=== PATIENT | male | born 1955 | race American Indian/Alaskan Native ===

== ENCOUNTER 2018-12-07 15:59 | Emergency (ER) | payer OTHER ==
[2018-12-07 16:55] LABS: ANION GAP 10.9; CHLORIDE,CL 103 mmol/L (101-111); SODIUM,NA 139 mmol/L (135-145)
[2018-12-07] MEDS ORDERED: Clindamycin HCl 150 MG Cap PO ONE (16:58)
[2018-12-07] MEDS ORDERED: Bacitracin Oint 1 GM U/D Packet TOP ONE (16:58)
--- NOTE | 2018-12-07 17:08 | EDM.PDOC ---
Scribed by Preethi Schafer 12/07/18 0305 for Emiliano Castellon MD ED HPI GENERAL MEDICAL PROBLEM - General Chief Complaint: Lower Extremity Injury/Pain Stated Complaint: LEFT FOOT/LEG PAIN BITE Time Seen by Provider: 12/07/18 16:15 Source of Information: Reports: Patient, RN, RN Notes Reviewed History Limitations: Reports: No Limitations - History of Present Illness INITIAL COMMENTS - FREE TEXT/NARRATIVE: Patient presents to ER with complaint of pain on left lower leg 10/05. States "I was bitten while I was waiting on the bus in [place], I was sleeping outside" Leg appearance is very reddened, with brown discoloration in middle. Onset: Gradual Duration: Getting Worse Location: Reports: Lower Extremity, Left Quality: Reports: Ache Severity: Mild Improves with: Reports: None Worsens with: Reports: None Associated Symptoms: Reports: No Other Symptoms Left Lower Leg Pain Score (Numeric/FACES): 7 - Related Data Allergies Allergy/AdvReac Type Severity Reaction Status Date / Time No Known Allergies Allergy Verified 12/07/18 16:05 Home Meds: Home Meds Cholecalciferol (Vitamin D3) [Vitamin D3] 1,000 units PO BID 12/07/18 [History] Lisinopril 20 mg DAILY 12/07/18 [History] Pravastatin [Pravachol] 20 mg PO BEDTIME 12/07/18 [History] metFORMIN HCl [Metformin HCl] 500 mg PO BID 12/07/18 [History] Past Medical History Endocrine/Metabolic History: Reports: Diabetes, Type II Social & Family History - Family History Family Medical History: Noncontributory - Living Situation & Occupation Living situation: Reports: with Significant Other Occupation: Disabled Review of Systems - Review of Systems Review Of Systems: ROS reveals no pertinent complaints other than HPI. ED EXAM, GENERAL - Physical Exam Exam: See Below Exam Limited By: No Limitations General Appearance: Alert, WD/WN, No Apparent Distress Throat/Mouth: Normal Voice, No Airway Compromise Head: Atraumatic, Normocephalic Respiratory/Chest: No Respiratory Distress, Lungs Clear, Normal Breath Sounds, No Accessory Muscle Use, Chest Non-Tender Cardiovascular: Normal Peripheral Pulses, Regular Rate, Rhythm Extremities: No Pedal Edema, Normal Capillary Refill, Other (Left lower anterior leg with 7cm diameter area of erythema with a central brownish/black eschar, dry no drainage). No: Joint Swelling Neurological: Alert, Oriented, No Motor/Sensory Deficits Psychiatric: Normal Mood Course - Vital Signs Last Recorded V/S: Last Vital Signs Temp 96.5 F 12/07/18 16:08 Pulse 67 12/07/18 16:08 Resp 18 12/07/18 16:08 BP 181/97 H 12/07/18 16:08 Pulse Ox 98 12/07/18 16:08 - Orders/Labs/Meds Orders: Active Orders 24 hr Category Date Time Status CRP [C-REACTIVE PROTEIN] [CHEM] Stat Lab 12/07/18 16:30 Received Labs: Laboratory Tests 12/07/18 12/07/18 Range/Units 16:30 16:30 WBC 5.8 (5.0-10.0) 10^3/uL RBC 4.83 (4.6-6.2) 10^6/uL Hgb 15.9 (14.0-18.0) g/dL Hct 47.5 (40.0-54.0) % MCV 98.3 (80-100) fL MCH 32.9 (27.0-34.0) pg MCHC 33.5 (33.0-35.0) g/dL Plt Count 172 (150-450) 10^3/uL Neut % (Auto) 64.3 (42.2-75.2) % Lymph % (Auto) 23.8 (20.5-50.1) % [place] % (Auto) 9.5 H (2-8) % Eos % (Auto) 1.7 (1.0-3.0) % Baso % (Auto) 0.7 (0.0-1.0) % Sodium 139 (135-145) mmol/L Potassium 3.9 (3.6-5.0) mmol/L Chloride 103 (101-111) mmol/L Carbon Dioxide 29.0 (21.0-31.0) mmol/L Anion Gap 10.9 BUN 13 (7-18) mg/dL Creatinine 1.0 (0.6-1.3) mg/dL Est Cr Clr Drug Dosing 81.91 mL/min Estimated GFR (MDRD) > 60 BUN/Creatinine Ratio 13.00 Glucose 104 (74-105) mg/dL Calcium 8.6 (8.4-10.2) mg/dl Total Bilirubin 0.4 (0.2-1.0) mg/dL AST 21 (10-42) IU/L ALT 29 (10-60) IU/L Alkaline Phosphatase 64 (42-121) IU/L Total Protein 7.4 (6.7-8.2) g/dl Albumin 3.7 (3.2-5.5) g/dl Globulin 3.7 Albumin/Globulin Ratio 1.00 Meds: Medications Discontinued Medications Generic Name Dose Route Start Last Admin Trade Name Milad PRN Reason Stop Dose Admin Bacitracin 1 dose 12/07/18 16:58 Bacitracin Oint 1 Gm TOP 12/07/18 16:59 ONETIME ONE Clindamycin HCl 300 mg 12/07/18 16:58 Cleocin PO 12/07/18 16:59 ONETIME ONE Departure - Departure Time of Disposition: 17:04 Disposition: Home, Self-Care 01 Condition: Good Clinical Impression: Hypertension, uncontrolled Insect bite of leg, infected Qualifiers: Encounter type: initial encounter Laterality: left Qualified Code(s): S80.862A - Insect bite (nonvenomous), left lower leg, initial encounter; L08.9 - Local infection of the skin and subcutaneous tissue, unspecified; W57.XXXA - Bitten or stung by nonvenomous insect and other nonvenomous arthropods, initial encounter - Discharge Information *PRESCRIPTION DRUG MONITORING PROGRAM REVIEWED*: Not Applicable *COPY OF PRESCRIPTION DRUG MONITORING REPORT IN PATIENT MELITON: Not Applicable Instructions: Insect Bite, Adult, [id number], Cellulitis, Adult, [id number] , Hypertension, [id number] Forms: ED Department Discharge Additional Instructions: Rx: Clindamycin 300mg Rx: Bactroban Ointment 2% Follow up in clinic in 3 to 5 days for recheck and for blood pressure and diabetic management. - My Orders Last 24 Hours: My Active Orders 12/07/18 16:30 CRP [C-REACTIVE PROTEIN] [CHEM] Stat - Assessment/Plan Last 24 Hours: My Active Orders 12/07/18 16:30 CRP [C-REACTIVE PROTEIN] [CHEM] Stat I have read and agree with the documentation that has been completed regarding this visit. By signing this record, I attest that the documentation was completed in my physical presence and is an accurate record of the encounter.
== END 2018-12-07 17:30 | disposition home or self-care (01) ==
LOC: DL.ED 15:59
DX: S80.862A Insect bite (nonvenomous), left lower leg, initial encounter (principal); L08.9 Local infection of the skin and subcutaneous tissue, unspecified; I10 Essential (primary) hypertension; E11.9 Type 2 diabetes mellitus without complications; Z79.899 Other long term (current) drug therapy; W57.XXXA Bitten or stung by nonvenomous insect and other nonvenomous arthropods, initial encounter
CPT/HCPCS: 36415; 80053; 85025; 86140; 99283; A9270